=== PATIENT | female | born 1980 | race Caucasian/White ===

== ENCOUNTER 2025-06-11 11:34 | Emergency (ER) | payer OTHER ==
[~2025-06-11] VITALS: Ht 167.6 cm; Wt 77.1 kg
[2025-06-11 11:43] VITALS: PULSE 60; RESP 18; TEMP 98.6
[2025-06-11] MEDS: ACETAMINOPHEN 325 MG TAB PO ONE (11:53)
[2025-06-11 13:38] VITALS: BP 123/79; O2SAT 100
== END 2025-06-11 13:25 | disposition home or self-care (01) ==
LOC: ER 11:41
DX: M25.572 Pain in left ankle and joints of left foot (principal); M25.571 Pain in right ankle and joints of right foot; S93.492A Sprain of other ligament of left ankle, initial encounter; S93.491A Sprain of other ligament of right ankle, initial encounter; W10.8XXA Fall (on) (from) other stairs and steps, initial encounter; Y93.01 Activity, walking, marching and hiking; Y92.89 Other specified places as the place of occurrence of the external cause; E03.9 Hypothyroidism, unspecified
CPT/HCPCS: 99283